=== PATIENT | female | born 1955 | race Caucasian/White ===

== ENCOUNTER → 2021-01-24 | Outpatient (CLI) | payer MEDICARE, BC | LOC: M CLY 09:50 | PROVIDERS: ATTEND Physician Assistant | DX: R05 Cough (principal) ==

== ENCOUNTER → 2021-02-05 | Outpatient (CLI) | payer MEDICARE, BC ==
--- NOTE | 2021-02-05 15:22 | REP ---
INDICATION: CHRONIC COUGH COMPARISON: None. TECHNIQUE: PA/Lateral FINDINGS: Lungs: Clear, no infiltrate. Heart: Normal in size. Mediastinum: Mediastinal silhouette unremarkable. Pleural angles: Unremarkable.. Bones and soft tissues: There are degenerative changes of the spine without compression deformity. Metallic plate and screws are seen in the cervical spine. IMPRESSION: No acute pulmonary disease. <Electronically signed by Jj Groves > 02/05/21 [id number]
--- NOTE | 2021-02-05 15:26 | REP ---
INDICATION: HX OF ACDF SURGERY. COMPARISON: None. TECHNIQUE: Seven views cervical spine. FINDINGS: On the obtained lateral views I cannot visualize the C6-7 disc level nor the C7 vertebral body. The cervical vertebral bodies down through C6 are well aligned and demonstrate no fracture or dislocation. There is no prevertebral soft tissue swelling. There is an anterior plate and multiple screws bridging C5 through C7, status post anterior cervical discectomy and fusion. There is a metallic disc spacer at C5-6. There is moderate spurring of C3 through C5. There is moderate disc space narrowing and subchondral sclerosis at C3-4 and C4-5. There is diffuse narrowing, sclerosis and spurring at the posterior facet joints. Oblique views do not sufficiently demonstrate the neural foramina. IMPRESSION: On the obtained lateral views I cannot visualize the C6-7 disc level nor the C7 vertebral body. Otherwise the visualized osseous structures demonstrate no fracture or dislocation. There are moderate degenerative changes. The visualized metallic fixation appears to be in good position status post anterior cervical discectomy and fusion at C5 through C7. <Electronically signed by Jj Groves > 02/05/21 [id number]
== END ==
LOC: M WUC 13:20
PROVIDERS: ATTEND Physician Assistant
DX: J40 Bronchitis, not specified as acute or chronic (principal)
CPT/HCPCS: 71046; 72052; G0463